=== PATIENT | male | born 1990 | race Caucasian/White ===

== ENCOUNTER 2021-02-22 20:27 | Emergency (ER) | payer BC ==
[~2021-02-22] VITALS: Ht 182.9 cm; Wt 112.0 kg
[2021-02-22] MEDS ORDERED: TDAP DIPH,PERTUSS,TET VAC/PF 0.5 ML DISP.SYRIN IM ONE ×2 (20:44→20:45)
[2021-02-22] MEDS ORDERED: LIDOCAINE 1%-EPI 1:100,000 20 ML VIAL IJ ONE (20:45)
--- NOTE | 2021-02-22 20:54 | NUR ---
ER MD at bedside for laceration repair. Tdap administered, consent in chart. No acute distress noted. VSS
[2021-02-22 21:06] VITALS: BP 133/68
--- NOTE | 2021-02-22 21:06 | NUR ---
Patient discharged to home in stable condition. Written and verbal after care instructions given. Patient verbalizes understanding of instructions. Stressed follow up or return to ER for worsening s/s. Ambulated from ER with stable gait. All belongings with patient. VSS
== END 2021-02-22 21:07 | disposition home or self-care (01) ==
LOC: ER 20:28
DX: S01.21XA Laceration without foreign body of nose, initial encounter (principal); W16.022A Fall into swimming pool striking bottom causing other injury, initial encounter; Y93.11 Activity, swimming; Y92.016 Swimming-pool in single-family (private) house or garden as the place of occurrence of the external cause
CPT/HCPCS: 12011; 90471; 90715; 99283; J3490; A4663